=== PATIENT | female | born 1985 | race Two or more races ===

== ENCOUNTER 2021-07-24 08:47 | Emergency (ER) | payer OTHER ==
[~2021-07-24] VITALS: Ht 160 cm; Wt 45.4 kg
--- NOTE | 2021-07-24 08:47 | NUR ---
PT [facility]40 AND [employer] FROM RETIREMENT C/O ABDOMINAL PAIN. PT IS PREGANT UNKNOW LMP. PT IS AAOX4, NOT IN RESPIRATORY DISTRESS, V/S STABLE, KEPT RESTED AND COMFORTABLE. WILL CONTINUE TO MONITOR.
--- NOTE | 2021-07-24 09:31 | NUR ---
URINE SAMPLE COLLECTED AND SENT
[2021-07-24 09:52] LABS: BASOPHILS # (AUTO) 0.1 K/uL (0.0-0.2); BASOPHILS % (AUTO) 0.5 % (0.0-2.0); EOSINOPHILS % (AUTO) 0.3 % (0.0-6.0); HEMATOCRIT 37 % (33-45); HEMOGLOBIN 12.1 g/dL (11.5-14.8); LYMPHOCYTES # (AUTO) 1.8 K/uL (0.8-4.8); LYMPHOCYTES % (AUTO) 14.6 % (20.0-44.0); MEAN CORPUSCULAR HGB CONC 33 g/dl (31.0-36.0); MEAN CORPUSCULAR VOLUME 85 fL (82-100); MONOCYTES % (AUTO) 8.6 % (2.0-12.0); NEUTROPHILS # (AUTO) 9.2 K/uL (1.8-8.9); PLATELET COUNT (AUTO) 337 K/uL (150-450); RED BLOOD CELL COUNT(AUTO) 4.39 MIL/uL (4.0-5.2); WHITE BLOOD COUNT (AUTO) 12.2 K/uL (4.3-11.0)
[2021-07-24 10:08] LABS: ALBUMIN 3.3 g/dL (3.4-5.0); BILIRUBIN,DIRECT 0.1 mg/dL (0.0-0.2); BILIRUBIN,TOTAL 0.3 mg/dL (0.2-1.0); CALCIUM, SERUM 8.9 mg/dL (8.5-10.1); CREATININE 0.5 mg/dL (0.6-1.3); POTASSIUM 3.9 mmol/L (3.5-5.1); TOTAL PROTEIN, SERUM 7.4 g/dL (6.4-8.2)
--- NOTE | 2021-07-24 10:29 | NUR ---
ULTRASOUND AT BEDSIDE
--- NOTE | 2021-07-24 10:48 | NUR ---
WET MOUNT SWAB COLLECTED AND SENT TO LAB
[2021-07-24 11:19] LABS: BILIRUBIN,URINE NEGATIVE (NEGATIVE); COLOR,URINE YELLOW (YELLOW); LEUKOCYTE ESTERASE ,URINE NEGATIVE (NEGATIVE); NITRITE, URINE NEGATIVE (NEGATIVE); PH,URINE 8.5 (5.0-8.0); PROTEIN,URINE NEGATIVE (NEGATIVE); UGLUCOSE NEGATIVE (NEGATIVE); UROBILINOGEN,URINE 0.2 EU/dL (0.2)
[2021-07-24 12:30] LABS: RBC,URINE 0-2 /HPF (0-2)
[2021-07-24 12:31] LABS: BACTERIA,URINE Rare /HPF (None Seen); SQUAMOUS EPITHELIAL CELL,UR Few /HPF (None Seen)
--- NOTE | 2021-07-24 12:40 | NUR ---
Lashawn guerra in [facility] - 07/24/21 at 1249 by NARCISA MICHAEL MOBLEY.
--- NOTE | 2021-07-24 12:40 | NUR ---
LUNCH TRAY PROVIDED.
--- NOTE | 2021-07-24 12:49 | NUR ---
Patient discharged in custody in stable condition. Written and verbal after care instructions given. Patient verbalizes understanding of instruction.
[2021-07-24 12:50] VITALS: BP 121/68
== END 2021-07-24 12:54 ==
LOC: ER 09:01
DX: O26.91 Pregnancy related conditions, unspecified, first trimester (principal); R10.30 Lower abdominal pain, unspecified; Z60.2 Problems related to living alone; Z3A.01 Less than 8 weeks gestation of pregnancy
CPT/HCPCS: 36415; 76856-TC; 80048-TC; 80076-TC; 81001; 84702-TC; 85025-TC; 87086-TC; 87210-TC; 87491; 87591